=== PATIENT | female | born 1985 | race Caucasian/White ===

== ENCOUNTER → 2016-07-30 | Outpatient (CLI) | payer MEDICAID ==
[~2016-07-30] MED LIST: ACYC400T PO; AMOX500T2 PO; BRITH CONTROL; HYDR25SU28 RC; PROM25TA14 PO
[2016-07-30 09:04] LABS: ALBUMIN 4.4 g/dL (3.4-5.0); ANION GAP 18.3 MEQ/L (3-15); TOTAL PROTEIN 7.9 g/dL (6.4-8.5)
== END ==
LOC: LAB 07:56
PROVIDERS: ATTEND Obstetrics & Gynecology
DX: N97.8 Female infertility of other origin (principal); E28.2 Polycystic ovarian syndrome; F32.9 Major depressive disorder, single episode, unspecified; E66.01 Morbid (severe) obesity due to excess calories
CPT/HCPCS: 36415; 80053; 80061; 82626; 83001; 83002; 83498; 83525; 84146; 84443